=== PATIENT | female | born 1990 | race Hispanic/Latino ===

== ENCOUNTER 2020-01-20 02:42 | Observation (INO) | payer OTHER ==
[~2020-01-20] VITALS: Ht 149.9 cm; Wt 85.3 kg
[2020-01-20 03:25] LABS: APPEARANCE,URINE Clear (CLEAR); BILIRUBIN,URINE Negative (NEGATIVE); COLOR,URINE Yellow (YELLOW); GLUCOSE, URINE (UA) Negative (NEGATIVE); KETONES,URINE Negative (NEGATIVE); LEUKOCYTE ESTERASE ,URINE Negative (NEGATIVE); NITRATE,URINE Negative (NEGATIVE); OCCULT BLOOD,URINE Large (NEGATIVE); PROTEIN,URINE POS 2+ mg/dL (NEGATIVE)
[2020-01-20 03:35] LABS: BACTERIA,URINE Few /HPF (None Seen); WBC,URINE 0-1 /HPF (0-1)
[2020-01-20 04:09] VITALS: BP 138/78
[2020-01-20] MEDS ORDERED: LACTATED RINGERS 1000ML IV SCH (05:15)
[2020-01-21] MEDS ORDERED: PREN1TAB80 PO (04:05)
== END 2020-01-20 05:45 | disposition home or self-care (01) ==
LOC: EDH 02:42 → LDH 02:43 → UNDOADMOB 03:01
PROVIDERS: ADMIT Obstetrics & Gynecology; ATTEND Obstetrics & Gynecology
DX: O26.853 Spotting complicating pregnancy, third trimester (principal); Z3A.38 38 weeks gestation of pregnancy
CPT/HCPCS: 81001; 99284; G0378 ×3; 96360

== ENCOUNTER 2020-01-21 03:44 | Inpatient (IN) | payer OTHER ==
[~2020-01-21] VITALS: Ht 149.9 cm; Wt 82.1 kg
[2020-01-21] MEDS ORDERED: LACTATED RINGERS 1000ML IV SCH (04:00)
[2020-01-21 04:05] VITALS: BP 152/100
[2020-01-21] MEDS ORDERED: PREN1TAB80 PO (04:05)
[2020-01-21 04:27] LABS: APPEARANCE,URINE Clear (CLEAR); BILIRUBIN,URINE Negative (NEGATIVE); COLOR,URINE Yellow (YELLOW); GLUCOSE, URINE (UA) Negative (NEGATIVE); KETONES,URINE Negative (NEGATIVE); LEUKOCYTE ESTERASE ,URINE Negative (NEGATIVE); NITRATE,URINE Negative (NEGATIVE); OCCULT BLOOD,URINE Moderate (NEGATIVE); PROTEIN,URINE POS 1+ mg/dL (NEGATIVE); UROBILINOGEN,URINE 0.2 mg/dL (0.2-1.0)
[2020-01-21 04:35] LABS: AMPHET/METH SCREEN,URINE NEGATIVE (NEGATIVE); BACTERIA,URINE Few /HPF (None Seen); BARBITURATE SCREEN, URINE NEGATIVE (NEGATIVE); BENZODIAZEPINES SCREEN,URINE NEGATIVE (NEGATIVE); CANNABINOID SCREEN,URINE NEGATIVE (NEGATIVE); COCAINE SCREEN,URINE NEGATIVE (NEGATIVE); OPIATE SCREEN,URINE NEGATIVE (NEGATIVE); PHENCYCLIDINE SCREEN,URINE NEGATIVE (NEGATIVE); RBC,URINE 0-1 /HPF (0-1); WBC,URINE 0-1 /HPF (0-1)
[2020-01-21] MEDS ORDERED: LACTATED RINGERS 1000ML 1,000 ML IV PRN (04:54)
[2020-01-21] MEDS ORDERED: AMPICILLIN 2GM+NS 100ML 100 ML IV SCH (05:00)
[2020-01-21 05:44] LABS: HEMATOCRIT 34.8 % (36-48); MEAN CORPUSCULAR HEMOGLOBIN 33.2 pg (27.0-33.0); MEAN CORPUSCULAR HGB CONC 34.8 g/dL (32.0-36.0); MEAN CORPUSCULAR VOLUME 95.3 fL (79-99); PLATELET COUNT (AUTO) 170 K/uL (130-400); RED BLOOD CELL COUNT(AUTO) 3.65 MIL/uL (4.00-5.50); RED CELL DISTRIBUTION WIDTH 12.9 % (11.0-15.5); WHITE BLOOD COUNT (AUTO) 8.4 K/uL (4.8-10.8)
[2020-01-21 05:55] LABS: CREATININE 0.8 mg/dL (0.5-1.5); POTASSIUM 3.8 mmol/L (3.5-5.1)
[2020-01-21 05:58] LABS: INR 0.88 (0.85-1.15); PARTIAL THROMBOPLASTIN TIME 29.7 SEC (26.3-35.5); PROTHROMBIN TIME 9.5 SEC (9.6-11.6)
[2020-01-21 06:01] LABS: ALBUMIN 2.6 g/dL (3.5-5.0); BILIRUBIN,TOTAL 0.2 mg/dL (0.2-1.0); TOTAL PROTEIN, SERUM 6.5 g/dL (6.0-8.3); URIC ACID 5.5 mg/dL (2.6-7.2)
[2020-01-21 08:14] LABS: RAPID PLASMA REAGIN NONREACTIVE (NONREACTIVE)
[2020-01-21] MEDS ORDERED: AMPICILLIN 1GM+NS 50ML 50 ML IV SCH (09:00)
[2020-01-21] MEDS ORDERED: PROMETHAZINE HCL 25 MG/ML 1ML AMPULE IM SCH (09:15)
[2020-01-21] MEDS ORDERED: MEPERIDINE-PF 75 MG/ML SYG IM SCH (09:15)
[2020-01-21] MEDS ORDERED: DINOPROSTONE 10 MG VAGINAL SUPP VG SCH (16:00)
[2020-01-21] MEDS ORDERED: MEPERIDINE-PF 50 MG/ML SYG IVP ONE (20:30)
[2020-01-21] MEDS ORDERED: PROMETHAZINE HCL 25 MG/ML 1ML AMPULE IM ONE (20:30)
[2020-01-21] MEDS ORDERED: OXYTOCIN-LR 20 UNITS/1000 ML 1,000 ML IV ONE (22:42)
[2020-01-21] MEDS ORDERED: LIDOCAINE HCL 1% 20 ML VIAL ONE (22:42)
[2020-01-21] MEDS ORDERED: MISOPROSTOL 200 MCG TABLET ONE (22:45)
[2020-01-21] MEDS ORDERED: MEPERIDINE-PF 50 MG/ML SYG ONE (22:49)
[2020-01-21] MEDS ORDERED: OXYTOCIN 10 USP UNITS/ML 20 UNIT in LACTATED RINGERS 1000ML 1,000 ML IV SCH (23:30)
[2020-01-22] MEDS ORDERED: ACETAMINOPHEN-CODEINE 300/30MG TAB PO PRN (01:00)
[2020-01-22] MEDS ORDERED: DIPH,PERTUSS(ACELL),TET VAC/PF 0.5 ML VIAL IM PRN (01:00)
[2020-01-22] MEDS ORDERED: OXYTOCIN-LR 20 UNITS/1000 ML 1,000 ML IV SCH ×2 (01:00→01:15)
[2020-01-22] MEDS ORDERED: BENZOCAINE/LANOLIN/ALOE VERA 60 ML AEROSOL TP PRN (01:00)
[2020-01-22] MEDS ORDERED: LANOLIN 30GM OINTMENT TP PRN (01:00)
[2020-01-22] MEDS ORDERED: WITCH HAZEL 1 PAD TP PRN (01:00)
[2020-01-22] MEDS ORDERED: OXYTOCIN LR IV ONE (01:17)
[2020-01-22] MEDS: IBUPROFEN 600 MG TABLET PO PRN ×4 (01:32→22:18)
[2020-01-22] MEDS ORDERED: METHYLERGONOVINE MALEATE 0.2 MG/1 ML ML IM STA (02:28)
[2020-01-22] MEDS ORDERED: METHYLERGONOVINE MALEATE 0.2 MG/1 ML ML ONE (02:32)
[2020-01-22 04:36] VITALS: BP 142/67
[2020-01-22 08:00] VITALS: BP 126/76
[2020-01-22] MEDS: DOCUSATE SODIUM 100 MG CAP PO SCH ×2 (08:44→20:50)
[2020-01-22 11:30] VITALS: BP 108/64
--- NOTE | 2020-01-22 12:12 | NUR ---
SS Assessment SW met with patient due to hx of marijuana abuse in 2013. Patient denies any use of drugs or alcohol in the past years. Patient lives in an apartment with her 4 1/2 year old son, Magen Botello and boyfriend, Dwayne Moore. Patient has reliable transportation and is able to complete ADL's independently. Patient works for [employer] and reports earnings of $1200 a month. Patient's boyfriend works at [employer] and earns about $700 a month. Patient also receives $285 in child support monthly. Patient reports no legal problems. She denies being on probation or parole. Patient also denies any hx of physical, domestic, or emotional abuse. Patient states she has no prior suicide attempts or hx of mental illness. Patient states there is no family hx of mental illness or suicide attempts that she is aware of. Patient admits to having open case with Child Protective Services in the past. Patient states that one of her ex-boyfriends called CPS and reported that she used drugs and sold drugs. Patient does admit to smoking marijuana for recreational use in 2013 but states she no longer uses any drugs or alcohol. SW contacted CPS office and was informed that patient did have open case from October 31, 2016 - 12/16/2017 due to drug use. SW informed patient of above information received from CPS office and admitted that this was the incident that she had informed SW about earlier in the assessment. Patient states that case lingered due to CPS wanting to have patient's first child placed in day care to monitor interactions. Patient states she no longer does anything that will jeopardizes safety of her children. Plan is for home when she is discharged from hospital. No further intervention needed at this time. Addendum: 01/22/20 at 1223 by JORDAN GERARD Amended: Links added.
[2020-01-22 16:00] VITALS: BP 114/68
[2020-01-22 19:15] VITALS: BP 128/78
[2020-01-22 22:15] VITALS: BP 129/69
[2020-01-23 03:04] VITALS: BP 124/75
[2020-01-23 07:55] VITALS: BP 131/84
[2020-01-23 08:13] LABS: HEPATITIS Bs ANTIGEN SCREEN P Negative (Negative)
[2020-01-23] MEDS: IBUPROFEN 600 MG TABLET PO PRN (08:16)
[2020-01-23] MEDS: DOCUSATE SODIUM 100 MG CAP PO SCH (08:16)
[2020-01-23] MEDS ORDERED: DIPH,PERTUSS(ACELL),TET VAC/PF 0.5 ML VIAL IM ONE (09:21)
--- NOTE | 2020-01-23 11:05 | NUR ---
DISCHARGE PT LEFT UNIT VIA WHEELCHAIR, ACCOMPANIED BY SIGNIFICANT OTHER. DENIED PAIN AND HAD NO COMPLAINTS. BABY STRAPPED IN CAR SEAT. PT AND BABY TRANSPORTED BY PERSONAL VEHICLE.
== END 2020-01-23 11:05 | disposition home or self-care (01) | DRG 807 ==
LOC: EDH 03:44 → OBSVTOIN 03:45 → LDH 03:45 → WSH 01-22 16:16
PROVIDERS: ADMIT Obstetrics & Gynecology; ATTEND Obstetrics & Gynecology
PROC: 10E0XZZ Delivery of Products of Conception, External Approach (ICD-10-PCS; principal; 2020-01-23)
PROC: 0KQM0ZZ Repair Perineum Muscle, Open Approach (ICD-10-PCS; 2020-01-23)
PROC: 3E0234Z Introduction of Serum, Toxoid and Vaccine into Muscle, Percutaneous Approach (ICD-10-PCS; 2020-01-23)
PROC: 10907ZC Drainage of Amniotic Fluid, Therapeutic from Products of Conception, Via Natural or Artificial Opening (ICD-10-PCS; 2020-01-23)
DX: O12.14 Gestational proteinuria, complicating childbirth (principal); Z37.0 Single live birth; O70.1 Second degree perineal laceration during delivery; Z3A.39 39 weeks gestation of pregnancy; Z23 Encounter for immunization
CPT/HCPCS: 36415; 76815; 80053; 80305; 81001; 84550; 85027; 85384; 85610; 85730; 86592; 86701; 86850; 86900; 86901; 87340; 87390; 90715; 96360; 96361; G0378; J0290; J2175; J2210; J2550; J2590; J7120